=== PATIENT | male | born 1990 | race Two or more races ===

== ENCOUNTER 2018-01-09 15:02 | Emergency (ER) | payer BC ==
[~2018-01-09] VITALS: Ht 177.8 cm; Wt 132.0 kg
[2018-01-09] MEDS ORDERED: CYCLOBENZAPRINE 10MG TABLET PO ONE (18:15)
[2018-01-09] MEDS ORDERED: KETOROLAC 30MG/ML VIAL IM ONE (18:15)
[2018-01-09 18:53] VITALS: BP 136/85
== END 2018-01-09 19:14 | disposition home or self-care (01) ==
LOC: ER 17:28
DX: M54.5 Low back pain (principal); I10 Essential (primary) hypertension; F12.10 Cannabis abuse, uncomplicated
CPT/HCPCS: 96372; 99283; J1885